=== PATIENT | male | born 1970 ===

== ENCOUNTER 2025-01-01 22:14 | Emergency (ER) | payer OTHER, SELFPAY ==
--- NOTE | ~2025-01-01 | CT_ITS ---
CLINICAL HISTORY: Right inguinal hernia not reducible CT abdomen and pelvis without contrast Comparison: None Findings: No consolidation or effusion. There is moderate sigmoid diverticulitis with no associated fluid collection or perforation. Masslike thickening of the inflamed sigmoid segment worrisome for neoplasm. Otherwise normal appearance of the colon. Stomach, small bowel, and appendix are normal. No free fluid or free air. Normal gallbladder, bile ducts, liver, spleen, pancreas, and adrenal glands. Normal kidneys, ureters, and urinary bladder. Moderate prostatomegaly. Moderate right inguinal fat containing hernia. No acute fracture or suspicious bone lesion. IMPRESSION: 1. Sigmoid diverticulitis with masslike thickening of the inflamed sigmoid segment, worrisome for colonic adenocarcinoma although this is not definitive. No associated perforation or abscess. 2. Moderate right inguinal fat containing hernia. This document has been electronically signed by: Luis Cisneros MD on 01/02/2025 00:20:25
[2025-01-01 22:21] VITALS: BP 145/88; PULSE 106; RESP 18; TEMP 36.8; O2SAT 97; BMI 24.6
--- NOTE | 2025-01-01 23:29 | ED_ITS ---
HPI - General Adult General Chief complaint: General Medical Stated complaint: Hernia? No BM in 4 days Time Seen by Provider: 01/01/25 23:08 Source: patient Mode of arrival: ambulatory Limitations: no limitations History of Present Illness ED Provider: HPI narrative: Patient no significant prior medical history apparently helping his friend to load tractor on the ramp 4 days ago since then noticed painful swelling right inguinal area which is not reducible no nausea no vomiting patient has not moved his bowel for last 4 days but passing gas no nausea no vomiting no abdominal distention no prior history of hernia in the past patient also complaining of pain in the left lower abdomen for last 3 days no prior history of diverticulitis no fever no chills no urinary symptoms Related Data Previous Rx's ?Medication ?Instructions ?Recorded ciprofloxacin HCl 500 mg tablet 500 mg PO BID #20 tabs 01/02/25 (Cipro) ibuprofen 600 mg tablet 600 mg PO Q6H PRN fever or pain 01/02/25 #30 tabs metronidazole 500 mg tablet 500 mg PO TID #30 tabs 01/02/25 Allergies Allergy/AdvReac Type Severity Reaction Status Date / Time No Known Allergies Allergy Verified 01/01/25 22:21 Review of Systems 2 Review of Systems: Yes all other systems are reviewed and are negative PMFSH Social History Social History Smoked in Last 30 Days: No Use of substances other than those prescribed or required for medical reasons: No Advance Directives: No Advance Directives Information Provided: Yes Do you have a plan to hurt others: No Plan Physical Exam ED Vital Signs: Vital Signs - 24 hr 01/01/25 22:21 01/01/25 23:59 Temperature 98.3 F 98.5 F Pulse Rate 106 H 94 Respiratory Rate 18 20 Blood Pressure 145/88 H 145/84 H Pulse Oximetry 97 98 Oxygen Delivery Method Room Air Room Air BMI result Body Mass Index 24.6 Appearance: Alert. Oriented X3. No acute distress. Eyes: no pallor or icterus ENT: Pharynx normal. Oral Mucosa moist Neck: Normal inspection. Neck supple. CVS: Normal heart rate and rhythm. Pulses normal. Respiratory: No respiratory distress. Equal air entry bilateral, no wheezing/rales/rhonchi Abd: soft, deep tenderness left lower quadrant with guarding, right inguinal fat containing direct hernia tender unable to reduce Skin: Skin warm and dry. Normal skin color. Normal skin turgor. Extremities: No lower extremity edema, no calf tenderness Neuro: Oriented X 3. Medications Administered Discontinued Medications Generic Name Dose Route Start Last Admin Trade Name Freq PRN Reason Stop Dose Admin Piperacillin Sod/Tazobactam 50 mls @ 100 mls/hr 01/02/25 00:59 01/02/25 01:45 Sod 3.375 gm/ Sodium Chloride IV 01/02/25 01:28 100 mls/hr ONCE ONE Administration Medical Decision Making Medical Decision Making [facility] Narrative: Patient has been tried inguinal hernia which is fat containing no signs of strangulation also does have uncomplicated diverticulitis with possible mass patient had colonoscopy at age of 43 which was negative does have a family history of colon cancer patient advised to follow with Dr. Gunter for further management avoid weightlifting and antibiotic for diverticulitis and need a colonoscopy Differential Diagnosis Differential Diagnoses: The differential diagnosis associated with the presentation includes Inguinal hernia/diverticulitis Lab Data [facility] Lab Attestation statement: I reviewed the patient's lab results. 01/02/25 01:42 01/02/25 02:03 Labs: Lab Results 01/02/25 01/02/25 Range/Units 01:42 02:03 WBC 13.9 H (4.8-10.8) X10*3/uL RBC 4.80 (4.60-5.80) X10*6/uL Hgb 13.3 L (14.0-18.0) g/dl Hct 39.8 L (42.0-52.0) % MCV 82.9 (80.0-98.0) fL MCH 27.7 (27.0-33.0) pg MCHC 33.4 (31.0-36.0) g/dl RDW 12.7 (11.0-16.0) % Plt Count 343 (160-400) X10*3/uL MPV 11.3 (9.4-12.4) fL Immature Gran % (Auto) 0.5 H (0.0-0.4) % Neut % (Auto) 69.1 (45-73) % Lymph % (Auto) 17.6 L (20-40) % Travis % (Auto) 10.5 (2-11) % Eos % (Auto) 1.8 (0-4) % Baso % (Auto) 0.5 (0-2) % Lymph # (Auto) 2.4 (1.2-4.9) X10*3/uL Travis # (Auto) 1.5 H (0.1-1.2) X10*3/uL Eos # (Auto) 0.3 (0.0-0.4) X10*3/uL Baso # (Auto) 0.1 (0.0-0.2) X10*3/uL Abs Immat Gran (auto) 0.07 H (0.00-0.03) X10*3/uL Absolute Neuts (auto) 9.6 H (2.0-8.3) x10*3/uL Absolute Nucleated RBC 0.000 (0.0-0.012) X10*3/uL Nucleated RBC % (auto) 0.0 (0.0-0.2) /100WBC Sodium 138 (135-145) mmol/L Potassium 4.3 (3.3-5.1) mmol/L Chloride 107 (96-108) mmol/L Carbon Dioxide 20 L (22-29) mmol/L Anion Gap 15 (12-20) BUN 11 (9-16) mg/dL Creatinine 0.75 (0.5-1.4) mg/dL Estim Creat Clear Calc 99.2 Estimated GFR > 60 Random Glucose 104 (60-115) mg/dL Lactic Acid 1.5 (0.5-2.0) mmol/L Calcium 9.9 (8.4-10.2) mg/dL Total Bilirubin 0.7 (0.0-1.0) mg/dL AST 70 H (5-37) U/L ALT 116 H (0-40) U/L Alkaline Phosphatase 102 (39-117) U/L Total Protein 8.0 (6.5-8.0) g/dL Albumin 4.3 (3.5-5.0) g/dL Independent Interpretation I performed an independent interpretation of an: CT Scan Radiology Impression Discussion of test interpretation with radiology: I have reviewed the radiologist's reading. Radiologist Impression: [place] [id number] CT Scan Report Signed Patient: Fawad Calloway MR#: [id number] : 1970 Acct:[id number] Age/Sex: 54 / M ADM Date: 01/01/25 Loc: HO.ED Attending Dr: Ordering Physician: Ariel Patiño MD Date of Service: 01/01/25 Procedure(s): CT abdomen pelvis wo IV con Accession Number(s): [id number] cc: Physician,None ; Ariel Patiño MD~ Report Number: [id number]: Total DLP = 561.00 mGy-cm CLINICAL HISTORY: Right inguinal hernia not reducible CT abdomen and pelvis without contrast Comparison: None Findings: No consolidation or effusion. There is moderate sigmoid diverticulitis with no associated fluid collection or perforation. Masslike thickening of the inflamed sigmoid segment worrisome for neoplasm. Otherwise normal appearance of the colon. Stomach, small bowel, and appendix are normal. No free fluid or free air. Normal gallbladder, bile ducts, liver, spleen, pancreas, and adrenal glands. Normal kidneys, ureters, and urinary bladder. Moderate prostatomegaly. Moderate right inguinal fat containing hernia. No acute fracture or suspicious bone lesion. IMPRESSION: 1. Sigmoid diverticulitis with masslike thickening of the inflamed sigmoid segment, worrisome for colonic adenocarcinoma although this is not definitive. No associated perforation or abscess. 2. Moderate right inguinal fat containing hernia. This document has been electronically signed by: Luis Cisneros MD on 01/02/2025 00:20:25 Discharge Plan Discharge Clinical Impression: Diverticulitis, Hernia, inguinal, right Patient Disposition: Home, Self-Care Instructions: Diverticulitis (ED), Inguinal Hernia (ED), Diverticulitis Diet (ED) Additional Instructions: Drink plenty of fluids Liquid diet advanced as tolerated Antibiotic as prescribed Avoid straining Follow up with PCP/surgeon for the hernia and need for colonoscopy Prescriptions: New metronidazole 500 mg tablet 500 mg PO TID Qty: 30 0RF ciprofloxacin HCl [Cipro] 500 mg tablet 500 mg PO BID Qty: 20 0RF ibuprofen 600 mg tablet 600 mg PO Q6H PRN (Reason: fever or pain) Qty: 30 0RF Referrals: David Gunter MD [Physician] - 1 week Print Language: Belarusian
[2025-01-01 23:59] VITALS: BP 145/84; PULSE 94; RESP 20; TEMP 36.9; O2SAT 98
--- NOTE | 2025-01-02 00:03 | PC.NURSE ---
pt changed into hospital attire, assessment completed, pt taken to ct-scan, pt awaiting results and deposition.
[2025-01-02] MEDS: Piperacillin Sodium/Tazobactam 3.375 GM in 0.9 % Sodium Chloride 50 ML IV (01:45)
[2025-01-02 01:47] LABS: Basophils Absolute Auto 0.1 X10*3/uL (0.0-0.2); Basophils Percent Auto 0.5 % (0-2); Eosinophils Absolute Auto 0.3 X10*3/uL (0.0-0.4); Eosinophils Percent Auto 1.8 % (0-4); Hematocrit 39.8 % (42.0-52.0); Hemoglobin 13.3 g/dl (14.0-18.0); Imm Gran Abs Auto 0.07 X10*3/uL (0.00-0.03); Imm Gran Pct Auto 0.5 % (0.0-0.4); Lymphocytes Absolute Auto 2.4 X10*3/uL (1.2-4.9); Lymphocytes Percent Auto 17.6 % (20-40); MANUAL DIFF FLAG NO; Mean Corpuscular HGB Conc 33.4 g/dl (31.0-36.0); Mean Corpuscular Hemoglobin 27.7 pg (27.0-33.0); Mean Corpuscular Volume 82.9 fL (80.0-98.0); Mean Platelet Volume 11.3 fL (9.4-12.4); Monocytes Absolute Auto 1.5 X10*3/uL (0.1-1.2); Monocytes Percent Auto 10.5 % (2-11); Neutrophils Absolute Auto 9.6 x10*3/uL (2.0-8.3); Neutrophils Percent Auto 69.1 % (45-73); Platelet Count 343 X10*3/uL (160-400); Red Cell Distribution Width 12.7 % (11.0-16.0); White Blood Count 13.9 X10*3/uL (4.8-10.8)
--- NOTE | 2025-01-02 01:47 | PC.NURSE ---
Iv place, labs drawn, medicated per nov.
[2025-01-02 02:27] LABS: Lactic Acid 1.5 mmol/L (0.5-2.0)
[2025-01-02 02:28] LABS: Alanine Aminotransferase 116 U/L (0-40); Albumin Level 4.3 g/dL (3.5-5.0); Alkaline Phosphatase 102 U/L (39-117); Anion Gap 15 (12-20); Aspartate Amino Transferase 70 U/L (5-37); Bilirubin Total 0.7 mg/dL (0.0-1.0); Blood Urea Nitrogen 11 mg/dL (9-16); Calcium 9.9 mg/dL (8.4-10.2); Carbon Dioxide 20 mmol/L (22-29); Chloride 107 mmol/L (96-108); Creatinine Clr Calc Pharmacy 99.2; Estimated Glomerular Filt Rate > 60; Glucose Random 104 mg/dL (60-115); Potassium 4.3 mmol/L (3.3-5.1); Sodium 138 mmol/L (135-145)
[2025-01-02 03:03] VITALS: BP 145/84; PULSE 94; RESP 20; TEMP 36.9; O2SAT 98
== END 2025-01-02 03:04 | disposition home or self-care (01) ==
PROVIDERS: Emergency Provider Internal Medicine
DX: K40.90 Unilateral inguinal hernia, without obstruction or gangrene, not specified as recurrent (principal); K57.92 Diverticulitis of intestine, part unspecified, without perforation or abscess without bleeding; R10.32 Left lower quadrant pain
CPT/HCPCS: 36415; 74176; 80053; 83605; 85025; 87040; 96365; 99284; J2543

== ENCOUNTER → 2025-01-01 23:37 | Outpatient (BNV) | payer OTHER, SELFPAY | PROVIDERS: Emergency Provider Internal Medicine; Visit Provider Radiology Diagnostic Radiology | DX: K40.30 Unilateral inguinal hernia, with obstruction, without gangrene, not specified as recurrent (principal); K57.32 Diverticulitis of large intestine without perforation or abscess without bleeding | CPT/HCPCS: 74176 ==

== ENCOUNTER 2025-01-17 10:07 | Outpatient (AMB) | payer OTHER, SELFPAY ==
--- NOTE | 2025-01-17 10:11 | A.OFFVIS_ITS ---
Vital Signs 01/17/25 10:19 Height 5 ft 6 in Weight 150 lb BMI 24.2 BP 143/89 H Blood Pressure Location Rt brachial Position Sitting Pulse 119 H Intake Visit Reasons: Hernia Intake Note: Patient seen at [facility] for painful swelling right inguinal area. Patient c/o: noticed bulge after heavy lifting a week ago. Swelling has decreased 80%. Abdomen pelvis CT: 01-01-2025 Stain Remover Required: No Accompanied by: Self / Same As Patient Allergies No Known Allergies Allergy (Verified 01/17/25 10:16) Medication List - Last Reconciled 01/17/25 by David Gunter MD ibuprofen 600 mg PO Q6H PRN HPI HPI Hernia: Details: 54-year-old male referred by the ER for a right inguinal hernia as well as for diverticulitis He went to the ER last 01/01/2025 because of a large mass in the right inguinal scrotal area. He said that he has noticed this on and off for about 3-4 months. He does state that sometimes this would be much bigger in size. He was also having pain in the left lower quadrant when he went to the ER. He did have a CAT scan done showing a right inguinal hernia containing fat and diverticulitis of the sigmoid. He was discharged from the ER on antibiotics and was referred to me He says that this left lower quadrant pain had resolved right after that. He still notices this right groin mass which seems to be reducible now. He denies any medical problems although he admits he has not seen his primary care physician in a few years. [facility] Medical History (Updated 01/17/25 @ 10:42 by David Gunter MD) Reducible right inguinal hernia Family History Mother Colon cancer Father Colon cancer Social History Patient Tobacco Use Status: Never used Tobacco Review of Systems Const Denies chills and Denies fever(s) Card Denies chest pain, Denies dyspnea and Denies dyspnea on exertion Resp Denies cough, Denies dyspnea and Denies dyspnea on exertion GI Denies hematochezia and Denies change in bowel habits Denies hematuria and Denies difficulty urinating Musc Denies back pain and Denies limited range of motion Neuro Denies focal weakness and Denies convulsions Psych Denies depression and Denies mood swings Physical Exam Vital Signs: Last Vital Signs Pulse 119 H 01/17/25 10:19 BP 143/89 H 01/17/25 10:19 BMI result Body Mass Index 24.2 Const General: comfortable and no acute distress Orientation/consciousness: patient oriented x3 Neck Neck: Yes no lymphadenopathy Resp Auscultation: clear to auscultation bilaterally Cardio Rhythm: regular rhythm GI Other: Right inguinal hernia, reducible, much more obvious with Valsalva Palpation (GI): Soft to palpation, nontender and no guarding Neuro General: patient oriented x3 Assessment & Plan Assessment & Plan (1) Reducible right inguinal hernia: Code(s): K40.90 - Unilateral inguinal hernia, without obstruction or gangrene, not specified as recurrent Category: Medical Plan: He has a right inguinal hernia, reducible, seen on his CAT scan as described above. He says that he has had this for about 4 months now and this has been worsening in size as well as with discomfort I explained to him the option of proceeding with repair. I discussed the technique of repair with mesh. I reviewed the risks including but not limited to bleeding, infections, injury to bowel, recurrence, postop pain, as well as the benefits and alternatives. I reviewed with him what to expect postoperatively He was given consent. (2) Diverticulitis: Code(s): K57.92 - Diverticulitis of intestine, part unspecified, without perforation or abscess without bleeding Category: Medical Plan: His CAT scan done last January 01 in the ED also shows sigmoid diverticulitis, without any abscess. He says that his left lower quadrant pain had resolved right after He currently does not have any pain or tenderness I told him that he should have a colonoscopy as he has not had 1 in more than 10 years . He says that he is going to see his primary care physician next week and is going to discuss this. Medications: Discontinued ciprofloxacin HCl (Cipro) Discontinued Reason: Patient Refused 500 mg PO BID 20 tabs 0RF metronidazole Discontinued Reason: Patient Completed Course 500 mg PO TID 30 tabs 0RF Coding Level of Care Code New Pt Level 3 (31577) Diagnoses Reducible right inguinal hernia K40.90 Diverticulitis K57.92
[2025-01-17 10:19] VITALS: BP 143/89; PULSE 119; BMI 24.2
--- OUTSIDE RECORDS SUMMARY | 2025-01-17 11:30 | XMS_ITS | Clinical Summary ---
Author Organization [facility] lin Address [address] [place] [address] Care Team Providers Care Certified Phlebotomist Name Role Phone Pcp, No Primary Care Provider [phone] Social History Tobacco Use Types Packs/Day Years Used Date Smoking Tobacco: Never Assessed Sex and Gender Information Value Date Recorded Sex Assigned at Not on file Legal Sex Male 11:16 AM EST Gender Identity Not on file Sexual Orientation Not on file Plan of Treatment Health Maintenance Due Date Last Done Comments Colorectal Cancer: COLONOSCO PY Screening every 10 yrs (or Modifier) 1970 Depression: Screening Annual ly using PHQ-2/9 in Adults 18 yrs or above (or HM Modifier)([facility]) 1970 Hepatitis C Virus Infection in Adolescents and Adults: Screening (or Modifier) ([facility]) 1986 [facility] Screening Reminder: Jasmyn cm for all adults ([facility]) 1986 Tobacco Smoking Cessation: i n Adults excluding Women: Behavioral and Pharmacotherapy Interventions ([facility]) 1986 DTaP/Tdap/Td Vaccines ([facility]) (1 - Tdap) 11/24/1987 Lipid Screening: Every 5 yrs for Men aged 35+ (or HM Modifier) ([facility]) 2004 Colorectal Cancer Screening 45 -75 Yrs (or HM Modifier ) 2013 Colorectal Cancer: FLEXIBLE SIGMOIDOSCOPY Screening every 5 yrs 2013 Colorectal Cancer: Fecal Imm unochemical Test (FIT) Annually [facility] 2013 Colorectal Cancer: High-sens itivity gFOBT Screening Annually [facility] 2013 Colorectal Cancer: Stool Col oguard Screening every 3 yrs 2013 Colorectal Cancer:CT Colonography Screening every 5 yr s 2013 Pneumococcal Vaccination Scr eening: Patients 50+ yrs of age ([facility]) (1 of 1 - PCV) 2018 Zoster/Shingles Vaccine Seri es Screening: Adults aged 18+ yrs (or HM Modifiers)([facility]) (1 of 2) 2018 COVID-19 Vaccine Screening: Initial Series and Booster Status ([facility]) (2023- season) 2024 Flu Vaccination: Yearly for ages 18mos through 64 years (or Modifier)([facility]) 04/21/2025 Medical Devices Not on file Care Teams Certified Phlebotomist Relationship Specialty Start Date End Date Pcp, No PCP - General Family Medicine 11/15/21
== END 2025-01-17 10:37 | disposition home or self-care (01) ==
LOC: HO.HGS 10:07
PROVIDERS: PCP Internal Medicine; Visit Provider Surgery
DX: K40.90 Unilateral inguinal hernia, without obstruction or gangrene, not specified as recurrent (principal); K57.92 Diverticulitis of intestine, part unspecified, without perforation or abscess without bleeding
CPT/HCPCS: 99203